=== PATIENT | female | born 1990 | race Caucasian/White ===

== ENCOUNTER 2025-01-04 07:34 | Emergency (ER) | payer BC, OTHER ==
[2025-01-04] MEDS ORDERED: NA CHLORIDE 0.9% 1,000 ML ONE (07:52)
[2025-01-04 08:06] LABS: Absolute Eosinophils 0.3 K/uL (0-0.5); Absolute Lymphocytes (CBC) 2.4 K/uL (0.7-4.9); Absolute Monocytes 0.4 K/uL (0.1-1.3); Absolute Neutrophil 5.7 K/uL (1.8-8.0); Basophils % 0.4 % (0-1.3); Eosinophils % 2.9 % (0-4.4); Hematocrit 39.4 % (36.0-45.0); Hemoglobin 13.1 g/dL (12.0-15.0); Lymphocytes % 26.9 % (15.3-44.8); MCH 28.3 pg (27.0-35.0); MCHC 33.2 g/dL (32.0-36.0); MCV 85.1 fL (80-100); MPV 9.4 fL (7.6-11.3); Neutrophils % 64.8 % (41.7-73.7); Nucleated Red Blood Cells % 0.1 % (0-0); Platelets 212 thou/uL (152-406); RBC Red Blood Cell Count 4.63 M/uL (3.86-4.86); Red Cell Distribution Width 13.6 % (12.1-15.2)
[2025-01-04 08:23] LABS: Albumin 3.6 g/dL (3.4-5.0); Albumin/Globulin Ratio 1.1 (1.1-1.8); Anion Gap 9.8 mEq/L (5.0-15.0); Bilirubin Total 0.8 mg/dL (0.2-1.0); Globulin 3.4 g/dL (2.3-3.5); Potassium 3.8 mEq/L (3.5-5.1)
[2025-01-04 08:44] LABS: Specific Gravity 1.026 (1.005-1.030)
[2025-01-04 08:47] LABS: Specific Gravity 1.026 (1.005-1.030); Sqamous Epithelial <5 /HPF (None Seen); Urine Bacteria None Seen /HPF (<20); Urine Bilirubin NEGATIVE (Negative); Urine Blood 2+ (Negative); Urine Clarity Extremely Turbid (Clear); Urine Color Yellow (Yellow); Urine Culture Reflex Order NOT NEEDED; Urine Glucose NEGATIVE (Negative); Urine Ketones NEGATIVE (Negative); Urine Microscopic Reflex YN ORDER UMIC; Urine Mucus Slight /HPF (None Seen); Urine Nitrite NEGATIVE (Negative); Urine Protein TRACE (Negative); Urine RBC <5 /HPF (None Seen); Urine Urobilinogen Normal (Normal); Urine WBC <5 /HPF (<5); Urine pH 7.5 (5.0-7.0)
--- NOTE | 2025-01-04 09:44 | RAD REPORT ---
EXAMINATION: CT Abdomen Pelvis W Contrast CLINICAL INDICATION: Female, 34 years old. ABD PAIN TECHNIQUE: CT abdomen and pelvis was performed, after the administration of IV contrast, as [facility]. Axial, sagittal and coronal reconstructions were obtained. One or more of the following dose reduction techniques were used: Automated exposure control, adjustment of the mA and k V according to patient size, and iterative reconstruction. Unless otherwise specified, incidental findings do not require dedicated imaging follow-up. COMPARISON: 09/16/2009 FINDINGS: LOWER CHEST: The visualized lung bases are clear. LIVER: Normal in size and contour. No focal lesion. BILIARY SYSTEM: No suspicious abnormalities. SPLEEN: Normal size. No focal lesion. PANCREAS: No mass, ductal dilation, or erica-pancreatic fluid. ADRENALS: Normal; no mass. KIDNEYS: Normal size and contour. No hydronephrosis. URINARY BLADDER: Decompressed limiting evaluation. GASTROINTESTINAL TRACT: No evidence of free air, bowel obstruction or abscess. Trace fluid in the pe lvis, favored to be physiologic. APPENDIX: Normal appendix. LYMPH NODES: No lymphadenopathy. MUSCULOSKELETAL: No acute or suspicious osseous abnormality. ADDITIONAL FINDINGS: None. IMPRESSION: No acute or concerning abnormalities seen in the abdomen or pelvis. Findings as above.
--- NOTE | 2025-01-04 09:58 | EDPHYS ---
Physician Documentation [facility] Name: Kristi Mota Age: 34 yrs Sex: Female : 1990 Arrival Date: 01/04/2025 Time: 07:34 Bed 5 Private MD: ED Physician Rachell Aiken HPI: 01/04 09:53 This 34 yrs old Female presents to ER via Ambulatory with complaints of Abdominal Pain. sp3 09:53 34-year-old female with no significant past medical history and past surgical history sp3 positive for many years ago now presents to the ED with suprapubic and right lower quadrant abdominal pain since approximately 2 AM. She denies any headache, chest pain, shortness of breath, back pain, symptoms, CASH GRAIN GROWER symptoms, vomiting, diarrhea or any other signs or symptoms on ROS at this time.. 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 - Infectious Disease History:: Denies. - Social history:: Smoking status: Reported history of juuling and/or vaping. ROS: 09:55 Constitutional: Negative for fever, chills, and weight loss, Eyes: Negative for injury, sp3 pain, redness, and discharge, Neck: Negative for injury, pain, and swelling, Cardiovascular: Negative for chest pain, palpitations, and edema, Respiratory: Negative for shortness of breath, cough, wheezing, and pleuritic chest pain, Back: Negative for injury and pain, MS/Extremity: Negative for injury and deformity, Skin: Negative for injury, rash, and discoloration, Neuro: Negative for headache, weakness, numbness, tingling, and seizure, Psych: Negative for depression, anxiety, suicide ideation, homicidal ideation, and hallucinations, Allergy/Immunology: Negative for hives, rash, and allergies, Endocrine: Negative for neck swelling, polydipsia, polyuria, polyphagia, and marked weight changes, 09:55 All other systems are negative, Exam: 09:55 Constitutional: This is a well developed, well nourished patient who is awake, alert, sp3 and in no acute distress. Head/Face: Normocephalic, atraumatic. Eyes: Pupils equal round and reactive to light, extra-ocular motions intact. Lids and lashes normal. Conjunctiva and sclera are non-icteric and not injected. Cornea within normal limits. Periorbital areas with no swelling, redness, or edema. Neck: Trachea midline, no thyromegaly or masses palpated, and no cervical lymphadenopathy. Supple, full range of motion without nuchal rigidity, or vertebral point tenderness. No Meningismus. Chest/axilla: Normal chest wall appearance and motion. Nontender with no deformity. No lesions are appreciated. Cardiovascular: Regular rate and rhythm with a normal S1 and S2. No gallops, murmurs, or rubs. Normal PMI, no JVD. No pulse deficits. Respiratory: Lungs have equal breath sounds bilaterally, clear to auscultation and percussion. No rales, rhonchi or wheezes noted. No increased work of breathing, no retractions or nasal flaring. Back: No spinal tenderness. No costovertebral tenderness. Full range of motion. Skin: Warm, dry with normal turgor. Normal color with no rashes, no lesions, and no evidence of cellulitis. MS/ Extremity: Pulses equal, no cyanosis. Neurovascular intact. Full, normal range of motion. Neuro: Awake and alert, GCS 15, oriented to person, place, time, and situation. Cranial nerves II-XII grossly intact. Motor strength 5/5 in all extremities. Sensory grossly intact. Cerebellar exam normal. Normal gait. Psych: Awake, alert, with orientation to person, place and time. Behavior, mood, and affect are within normal limits. 09:55 Abdomen/GI: Mild suprapubic pain and mild right lower quadrant pain without peritoneal signs, rebound or guarding., Vital Signs: 07:50 BP 130 / 62; Pulse 70; Resp 16; Pulse Ox 100% on R/A; iw 07:59 Temp 97.1(TE); ap3 08:49 BP 119 / 56; Pulse 99; Resp 19; Pulse Ox 100% on R/A; iw MDM: 07:41 Medical Screening Exam initiated sp3 09:56 Data reviewed: vital signs, nurses notes, lab test result(s), radiologic studies. ED sp3 course: 34-year-old female with abdominal pain. Differential diagnosis includes menstrual cramp which she is starting her cycle now, appendicitis, constipation, other colitis, UTI/pyelonephritis spectrum, kidney stone, biliary pathology, gastritis, functional abdominal pain, among others. Vital signs are normal. Workup has included CT scan of the abdomen pelvis with IV contrast, general labs, UA. Patient declined pain medication. All workup negative including all labs, UA, negative test, and CT scan demonstrates no abnormality. Will safely discharge patient home at this time. Patient states she wants to use OTC meds only and she will follow-up with PCP as needed or return here for any worsening symptoms.. 01/04 07:52 Order name: CBC with Diff; Complete Time: 08:49 sp3 01/04 07:52 Order name: CMP; Complete Time: 08:49 sp3 01/04 07:52 Order name: Lipase; Complete Time: 08:49 sp3 01/04 07:52 Order name: Test, Urine; Complete Time: 08:49 sp3 01/04 07:52 Order name: UA Rfx Arturo Cult if indicated; Complete Time: 08:49 sp3 01/04 07:52 Order name: CT Abd/Pelvis - IV Contrast Only; Complete Time: 09:51 sp3 01/04 07:52 Order name: IV Saline Lock; Complete Time: 08:00 sp3 01/04 07:52 Order name: Labs collected and sent; Complete Time: 08:00 sp3 01/04 07:52 Order name: NPO; Complete Time: 08:03 sp3 Administered Medications: 08:03 Drug: NS 0.9% IV 1000 ml IV at 1 bolus Per protocol; to be given as a bolus over 60 iw minutes Route: IV; Rate: 1 bolus; Site: right antecubital; 10:12 Follow up: IV Status: Completed infusion; IV Intake: 1000ml ap3 Disposition Summary: 01/04/25 09:57 Discharge Ordered Notes: Location: Home sp3 Condition: Stable sp3 Diagnosis - Abdominal pain sp3 Followup: sp3 - With: Private Physician - When: Upon discharge from the Emergency Department - Reason: Recheck today's complaints, Continuance of care Discharge Instructions: - Discharge Summary Sheet sp3 - Abdominal Pain, Adult sp3 Forms: - Medication Reconciliation Form sp3 - Antibiotic Education sp3 - Prescription Opioid Use sp3 - Patient Portal Instructions sp3 - Leadership Thank You Letter sp3 Signatures: Dispatcher [employer] EDLoni Amos RN RN iw Brittani Kiran RN RN ap3 Rachell Aiken MD MD sp3 Corrections: (The following items were deleted from the chart) 07:53 07:53 CBC+H.LAB.BRZ ordered. EDMS EDMS 07:53 07:53 COMPREHENSIVE METABOLIC PANEL+C.LAB.BRZ ordered. EDMS EDMS 07:53 07:53 LIPASE+C.LAB.BRZ ordered. EDMS EDMS 07:53 07:53 Test, Urine+UC.LAB.BRZ ordered. EDMS EDMS 07:53 07:53 UA Rfx Arturo Cult if indicated+U.LAB.BRZ ordered. EDMS EDMS
--- NOTE | 2025-01-04 09:58 | ER ---
Nurse's Notes [facility] Name: Kristi Mota Age: 34 yrs Sex: Female : 1990 Arrival Date: 01/04/2025 Time: 07:34 Bed 5 Private MD: Diagnosis: Abdominal pain Presentation: 01/04 07:49 Chief complaint: Patient states: lower abd pain since 0630 this morning, felt like iw cramping, was also nauseous. Coronavirus screen: At this time, the client does not indicate any symptoms associated with coronavirus-19. Ebola Screen: No symptoms or risks identified at this time. Initial Sepsis Screen: Does the patient meet any 2 criteria? No. Patient's initial sepsis screen is negative. Does the patient have a suspected source of infection?. Risk Assessment: Do you want to hurt yourself or someone else?. Onset of symptoms was January 04, 2025. 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 - Infectious Disease History:: Denies. - Social history:: Smoking status: Reported history of juuling and/or vaping. Screenin:02 [facility] ED Fall Risk Assessment (Adult) History of falling in the last 3 months, iw including since admission No falls in past 3 months (0 pts) Confusion or Disorientation No (0 pts) Intoxicated or Sedated No (0 pts) Impaired Gait No (0 pts) Mobility Assist Device Used No (0 pt) Altered Elimination No (0 pt) Score/Fall Risk Level 0 - 2 = Low Risk Oriented to surroundings, Maintained a safe environment. Abuse screen: Denies threats or abuse. Denies injuries from another. Nutritional screening: No deficits noted. Tuberculosis screening: No symptoms or risk factors identified. Assessment: 08:01 General: Appears in no apparent distress. Behavior is calm, cooperative. Pain: iw Complains of pain in suprapubic area, right lower quadrant and left lower quadrant. Neuro: Level of Consciousness is awake, alert, obeys commands, Oriented to person, place, time, situation, Moves all extremities. Full function. GI: Abdomen is flat, non-distended, Abd is soft X 4 quads Reports lower abdominal pain, nausea. GI: Bowel sounds present X 4 quads. Derm: Skin is healthy with good turgor, Skin is Skin temperature is cool. Musculoskeletal: Range of motion: intact in all extremities. 08:39 Reassessment: Patient appears in no apparent distress at this time. Patient and/or iw family updated on plan of care and expected duration. Pain level reassessed. Patient is alert, oriented x 3, equal unlabored respirations, skin warm/dry/pink. 09:59 Reassessment: Patient appears in no apparent distress at this time. Patient and/or iw family updated on plan of care and expected duration. Pain level reassessed. Patient is alert, oriented x 3, equal unlabored respirations, skin warm/dry/pink. Patient states feeling better. Vital Signs: 07:50 BP 130 / 62; Pulse 70; Resp 16; Pulse Ox 100% on R/A; iw 07:59 Temp 97.1(TE); ap3 08:49 BP 119 / 56; Pulse 99; Resp 19; Pulse Ox 100% on R/A; iw ED Course: 07:39 Patient arrived in ED. gl 07:41 Rachell Aiken MD is Attending Physician. sp3 07:50 Triage completed. iw 08:00 Loni Castellanos, RN is Primary Nurse. iw 08:01 Initial lab(s) drawn, by me, sent to lab. Inserted saline lock: 22 gauge in right iw antecubital area, using aseptic technique. Blood collected. Flushed with 10 mL NS. 08:02 Patient has correct armband on for positive identification. Client placed on continuous iw cardiac and pulse oximetry monitoring. NIBP monitoring applied. 08:35 UA Rfx Arturo Cult if indicated Sent. iw 08:36 Test, Urine Sent. iw 09:00 CT Abd/Pelvis - IV Contrast Only In Process Unspecified. EDMS 10:13 No provider procedures requiring assistance completed. IV discontinued, intact, ap3 bleeding controlled, No redness/swelling at site. Pressure dressing applied. 10:13 Provided Education on: discharge instructions. ap3 10:14 Arm band placed on right wrist. ap3 Administered Medications: 08:03 Drug: NS 0.9% IV 1000 ml IV at 1 bolus Per protocol; to be given as a bolus over 60 iw minutes Route: IV; Rate: 1 bolus; Site: right antecubital; 10:12 Follow up: IV Status: Completed infusion; IV Intake: 1000ml ap3 Medication: 08:02 VIS not applicable for this client. iw Intake: 10:12 IV: 1000ml; Total: 1000ml. ap3 Outcome: 09:57 Discharge ordered by . sp3 10:13 Discharged to home ambulatory, with family, ap3 10:13 Condition: good 10:13 Discharge instructions given to patient, Instructed on discharge instructions, follow up and referral plans. Demonstrated understanding of instructions, follow-up care, 10:14 Patient left the ED. ap3 Signatures: Dispatcher [employer] Loni Welch, THA ALMAZAN iw Brittani Kiran RN RN ap3 Rachell Aiken MD MD sp3 Ana Perdue, Reg Reg gl
[2025-01-04 10:34] VITALS: O2SAT 100
[2025-01-04 10:39] VITALS: TEMP 97.1
[2025-01-04 10:40] VITALS: BP 119/56
== END 2025-01-04 10:14 | disposition home or self-care (01) ==
LOC: ER 07:34
DX: R10.31 Right lower quadrant pain (principal); F17.290 Nicotine dependence, other tobacco product, uncomplicated
CPT/HCPCS: 96361; 85025; 81001; 36415; 81025; 83690; 80053; 74177; 96360; 99284; Q9967; J7030